=== PATIENT | male | born 1985 | race Two or more races ===

== ENCOUNTER 2022-01-26 09:05 | Emergency (ER) | payer OTHER ==
[2022-01-26 09:17] VITALS: BP 134/93; PULSE 66; RESP 18; TEMP 98.1; BMI 28.2
[2022-01-26] MEDS ORDERED: KETOROLAC TROMETHAMINE 30 MG/1 ML VIAL IM ONE (10:31)
[2022-01-26] MEDS ORDERED: ACETAMINOPHEN 500 MG TABLET (FP) PO ONE (10:31)
[2022-01-26] MEDS ORDERED: LIDOCAINE 5% TOPICAL PATCH TP ONE (10:32)
[2022-01-26] MEDS ORDERED: KETOROLAC TROMETHAMINE 30 MG/1 ML VIAL ONE (13:08)
[2022-01-26] MEDS ORDERED: LIDOCAINE 5% TOPICAL PATCH ONE (13:08)
[2022-01-26] MEDS ORDERED: ACETAMINOPHEN 325 MG TABLET (FP) ONE (13:08)
[2022-01-26] MEDS ORDERED: LIDOCAINE PATCH REMOVAL MC SCH (22:00)
== END 2022-01-26 18:54 | disposition home or self-care (01) ==
LOC: JERFT 09:05
PROC: 3E023GC Introduction of Other Therapeutic Substance into Muscle, Percutaneous Approach (ICD-10-PCS; principal; 2022-01-26)
DX: M54.2 Cervicalgia (principal); M54.89 Other dorsalgia; M25.512 Pain in left shoulder; V49.40XA Driver injured in collision with unspecified motor vehicles in traffic accident, initial encounter
CPT/HCPCS: 72125-TC; 72128-TC; 73030-TC-LT-FY; 99284-25